=== PATIENT | male | born 1990 | race Caucasian/White ===

== ENCOUNTER 2020-03-06 09:53 | Emergency (ER) | payer OTHER ==
[~2020-03-06] VITALS: Ht 167.6 cm; Wt 118.8 kg
[2020-03-06 10:05] VITALS: BP_SYST 113
[2020-03-06 10:53] VITALS: BP_SYST 118
== END 2020-03-06 10:53 | disposition home or self-care (01) ==
LOC: SED 09:53
DX: S83.8X1A Sprain of other specified parts of right knee, initial encounter (principal); W01.198A Fall on same level from slipping, tripping and stumbling with subsequent striking against other object, initial encounter; Y93.89 Activity, other specified; Y92.89 Other specified places as the place of occurrence of the external cause; Y99.8 Other external cause status
CPT/HCPCS: 73564; 99283

== ENCOUNTER 2020-11-10 07:59 | Emergency (ER) | payer OTHER, SELFPAY ==
[~2020-11-10] VITALS: Ht 170.2 cm; Wt 124.7 kg
[2020-11-10 08:11] VITALS: BP_SYST 112
--- NOTE | 2020-11-10 08:12 | NUR ---
Patient to ER bed 5 to gown for evaluation. Side rails up.
--- NOTE | 2020-11-10 08:15 | NUR ---
A PT ARRIVES FROM HOME W/ C/O A PRODUCTIVE COUGH AND FATIGUE SINCE YESTERDAY. PT DENIES FEVER AND BODY ACHES
--- NOTE | 2020-11-10 08:19 | NUR ---
ER at bedside examining patient.
--- NOTE | 2020-11-10 08:46 | NUR ---
FLU AND COVID PCR COLLECTED AND SENT TO THE LAB
[2020-11-10] MEDS ORDERED: D-ME118S48 PO (08:48)
[2020-11-10 09:01] VITALS: BP_SYST 112
--- NOTE | 2020-11-10 09:01 | NUR ---
Patient given written and verbal discharge instructions and verbalizes understanding. ER MD discussed with patient the results and treatment provided. Patient in stable condition. ID arm band removed. Patient educated on pain management and to follow up with PMD. Pain Scale 0/10. Opportunity for questions provided and answered. Medication side effect fact sheet provided.
== END 2020-11-10 09:01 | disposition home or self-care (01) ==
LOC: SED 07:59
DX: J06.9 Acute upper respiratory infection, unspecified (principal); Z20.822 Contact with and (suspected) exposure to COVID-19; Z79.899 Other long term (current) drug therapy
CPT/HCPCS: 86710; 99283; C9803; U0003

== ENCOUNTER 2022-04-17 14:45 | Emergency (ER) | payer MEDICAID, OTHER ==
[~2022-04-17] VITALS: Ht 170.2 cm; Wt 136.1 kg
[~2022-04-17 14:45] MED LIST: D-ME118S48 PO
[2022-04-17 16:41] VITALS: BP_SYST 119
--- NOTE | 2022-04-17 16:47 | NUR ---
Patient to ER bed hallway 1 to gown for evaluation. Side rails up. Report given to .
--- NOTE | 2022-04-17 16:48 | NUR ---
ER Dr. Jung at bedside examining patient.
[2022-04-17 16:54] LABS: BILIRUBIN,URINE NEGATIVE (NEGATIVE); BLOOD, URINE 3+ (NEGATIVE); CLARITY/URINE CLOUDY (CLEAR); COLOR,URINE RED (YELLOW); GLUCOSE,URINE NEGATIVE (NEGATIVE); KETONES,URINE NEGATIVE (NEGATIVE); LEUKOCYTE ESTERASE ,URINE 3+ (NEGATIVE); NITRITE, URINE NEGATIVE (NEGATIVE); PROTEIN URINE TRACE (NEGATIVE); UROBILINOGEN,URINE 0.2 (0.2-1.0)
[2022-04-17 17:04] LABS: BASOPHILS # (AUTO) 0.1 K/uL (0.0-0.2); BASOPHILS % (AUTO) 0.8 % (0.0-2.0); EOSINOPHILS # (AUTO) 0.1 K/uL (0.0-0.4); EOSINOPHILS % (AUTO) 0.8 % (0.0-4.0); HEMATOCRIT 43.2 % (36-54); HEMOGLOBIN 14.9 g/dL (14.0-18.0); LYMPHOCYTES # (AUTO) 2.3 K/uL (1.0-5.5); LYMPHOCYTES % (AUTO) 13.2 % (20.5-51.5); MEAN CORPUSCULAR HEMOGLOBIN 29 pg (27-31); MEAN CORPUSCULAR HGB CONC 34 % (32-36); MEAN CORPUSCULAR VOLUME 84 fL (79.0-98.0); MONOCYTES # (AUTO) 0.8 K/uL (0.0-1.0); MONOCYTES % (AUTO) 4.8 % (1.7-9.3); NEUTROPHILS # (AUTO) 13.8 K/uL (1.8-7.7); NEUTROPHILS % (AUTO) 80.4 % (40.0-70.0); PLATELET COUNT (AUTO) 316 K/uL (130-430); RED BLOOD CELL COUNT(AUTO) 5.14 MIL/uL (4.2-6.2); RED CELL DISTRIBUTION WIDTH 13.2 % (9.0-15.0); WHITE BLOOD COUNT (AUTO) 17.2 K/uL (4.8-10.8)
[2022-04-17 17:06] LABS: BACTERIA,URINE FEW /HPF (None Seen); MUCUS,URINE None Seen /LPF (None Seen); RBC,URINE >100 /HPF (0-3); WBC,URINE 50-80 /HPF (0-3)
[2022-04-17 17:55] LABS: INR 0.9 (0.80-1.20); PROTHROMBIN TIME 9.3 SECS (9.5-12.5)
--- NOTE | 2022-04-17 18:00 | NUR ---
Urine specimen collected and analyzed in ER. Results given to ER .
[2022-04-17 18:01] LABS: CALCIUM 8.9 mg/dL (8.4-11.0); CREATININE 1.14 mg/dL (0.55-1.30)
[2022-04-17 18:11] LABS: ALBUMIN 3.7 g/dL (3.4-4.8); TOTAL BILIRUBIN 0.4 mg/dL (0.0-1.0)
--- NOTE | 2022-04-17 18:24 | NUR ---
PT BIB SELF FROM HOME CC HEMATURIA, PAINFUL URINATION , PT IS AFEBRILE, SLIGHT HEADACHE. AAOX3, SKIN INTACT, SYMPTOMS ONSET THIS MORNING. PAIN 6/10 IN URINARY AREA.
[2022-04-17] MEDS ORDERED: NITR-85 PO (18:57)
[2022-04-17] MEDS ORDERED: IBUP-1971 PO (18:57)
[2022-04-17] MEDS ORDERED: cefTRIAXone 1 GM in LIDOCAINE 1%, 20 ML MDV 2.1 ML IM ONE (19:00)
[2022-04-17] MEDS ORDERED: IBUPROFEN 800 MG TABLET PO ONE (19:00)
--- NOTE | 2022-04-17 19:30 | NUR ---
Assumed pt care. Pt sitting up in bed, denies c/o pain or discomfort and no needs verbalized. NAD.
[2022-04-17 20:15] VITALS: BP_SYST 113
--- NOTE | 2022-04-17 20:15 | NUR ---
Patient given written and verbal discharge instructions and verbalizes understanding. ER MD discussed with patient the results and treatment provided. Patient in stable condition. ID arm band removed. Rx of Macrobid and Moterin given. Patient educated on pain management and to follow up with PMD. Pain Scale 4/10, medicated with Motrin prior to discharge. Opportunity for questions provided and answered. Medication side effect fact sheet provided.
== END 2022-04-17 20:15 | disposition home or self-care (01) ==
LOC: SED 14:45
DX: N39.0 Urinary tract infection, site not specified (principal); Z79.899 Other long term (current) drug therapy
CPT/HCPCS: 99284; 74176; 80053; 81000; 82150; 83690; 85025; 85610; 85730; 87086; 36415; 76376; 96372; J0696; J2001